=== PATIENT | female | born 1970 | race Caucasian/White ===

== ENCOUNTER 2022-07-21 05:27 | Outpatient (CLI) | payer BC, OTHER ==
[~2022-07-21] VITALS: Ht 162.5 cm; Wt 91.8 kg
[2022-07-21] MEDS ORDERED: PHEN-483 PO (08:54)
[2022-07-21] MEDS ORDERED: DICLOFENAC GEL (08:54)
[2022-07-21] MEDS ORDERED: TOPI25TA10 PO (08:54)
[2022-07-21] MEDS ORDERED: LOSA100T57 PO (08:54)
[2022-07-21] MEDS ORDERED: DICL25TA12 PO (08:54)
[2022-07-21] MEDS ORDERED: DICL50TA4 PO (08:54)
== END 2022-07-21 09:04 ==
LOC: PREOP 05:27
PROVIDERS: ATTEND Podiatrist Foot & Ankle Surgery
DX: Z01.818 Encounter for other preprocedural examination (principal); M20.12 Hallux valgus (acquired), left foot

== ENCOUNTER 2022-07-28 05:55 | Day surgery (SDC) | payer BC, OTHER ==
[~2022-07-28] VITALS: Ht 162.5 cm; Wt 91.8 kg
[2022-07-28] VITALS (11 sets, daily range): BP systolic 98–143; BP diastolic 63–89
[~2022-07-28 05:55] MED LIST: DICL25TA12 PO; DICL50TA4 PO; DICLOFENAC GEL; LOSA100T57 PO; PHEN-483 PO; TOPI25TA10 PO
[2022-07-28] MEDS ORDERED: ceFAZolin INJECTION 1,000 MG in NS (IVPB) 50 ML IV ONE (06:30)
[2022-07-28] MEDS: LACTATED RINGERS 1,000 ML IV PRN ×2 (07:01→08:20)
[2022-07-28] MEDS ORDERED: fentaNYL INJ 100 MCG/2 ML AMP ONE ×2 (07:03→09:27)
[2022-07-28] MEDS ORDERED: LIDOCAINE PF 2% 5 ML (XYLOCAINE) VIAL ONE (07:03)
[2022-07-28] MEDS ORDERED: ONDANSETRON 4 MG/2 ML (SDV) Z0FRAN ONE (07:03)
[2022-07-28] MEDS ORDERED: MIDAZOLAM 2 MG/2 ML (VERSED) VIAL ONE (07:03)
[2022-07-28] MEDS ORDERED: proPOfol 200 MG/20 ML (DIPRIVAN) VIAL IV ONE (07:03)
[2022-07-28] MEDS ORDERED: LIDOCAINE 1% INJ 20 ML VIAL ONE (07:06)
[2022-07-28] MEDS ORDERED: BUPIVACAINE 0.25% 30 ML (SENSORCAINE) VIAL ONE (07:06)
--- NOTE | 2022-07-28 07:19 | Progress Note-Pre Operative ---
Pre-Operative Progress Note Date of Available H&P: Jul 28, 2022 Date H&P Reviewed: Jul 28, 2022 Time H&P Reviewed: 07:18 Pre-Operative Diagnosis: Hallux Valgus left LACHO MATTHEWS DPLiliane Jul 28, 2022 07:19
[2022-07-28] MEDS ORDERED: BUPIVACAINE 0.25% 30 ML (SENSORCAINE) VIAL INJ ONE (07:50)
[2022-07-28] MEDS ORDERED: LIDOCAINE 1% INJ 20 ML VIAL INJ ONE (07:51)
[2022-07-28] MEDS ORDERED: SEVOFLURANE (ULTANE) 15 ML INHAL SOLN ONE (08:25)
--- NOTE | 2022-07-28 08:47 | Progress Note-Post Operative ---
Post-Operative Progess Note Surgeon (s)/Jointer Machine (s) Surgeon LACHO MATTHEWS DPM Jointer Machine: none Pre-Operative Diagnosis Hallux Valgus left Post-Operative Diagnosis same Procedure & Operative Findings Date of Procedure 07/28/22 Procedure Performed/Findings Santiago-Hesham bunionectomy left Anesthesia Type General Estimated Blood Loss Estimated blood loss (mL): Minimal Specimens/Packing Specimens Removed None LACHO MATTHEWS DPM Jul 28, 2022 08:47
[2022-07-28] MEDS ORDERED: CLIN150C2 PO (08:51)
[2022-07-28] MEDS ORDERED: [UNRECOGNIZED DRUG - CODE] PO (08:51)
[2022-07-28] MEDS ORDERED: LACTATED RINGERS 1,000 ML IV SCH (09:00)
[2022-07-28] MEDS ORDERED: morphine INJ 4 MG/ML 1 ML (VIAL/SYRINGE) IVP PRN (09:00)
[2022-07-28] MEDS ORDERED: ONDANSETRON 4 MG/2 ML (SDV) Z0FRAN IVP PRN (09:00)
[2022-07-28] MEDS ORDERED: morphine INJ 10 MG/ML 1ML (SYR OR VIAL) IVP ONE (09:00)
[2022-07-28] MEDS ORDERED: fentaNYL INJ 100 MCG/2 ML AMP IVP ONE (09:30)
--- NOTE | 2022-07-28 09:35 | Diagnostic Imaging Report ---
EXAMINATION: Left foot radiographs, 2 views. COMPARISON: None. HISTORY: 52-year-old female, status post foot surgery. FINDINGS: There are osteotomy changes of the first proximal phalanx with metallic fixation wire at the site of the osteotomy. There are also osteotomy findings of the first metatarsal with fixation pin traversing the osteotomy. There is uncovering of the lateral sesamoid. There is moderate joint space loss of the first metatarsophalangeal joint with osteophyte formation. There is soft tissue gas in the region of postoperative changes likely reflecting recent postoperative state of the patient. There is a multipart normal variant os navicularis. There is mild degenerative type calcaneal enthesopathy. There is no identified acute fracture. There is no cortical or aggressive bone destruction. IMPRESSION: 1. Postoperative changes of the first digit as above without identified complication. 2. Moderate osteoarthritis of the first metatarsophalangeal joint. Dictated by: Dictated on workstation # [id number]
--- NOTE | 2022-07-28 11:41 | Anesthesia-General Post-Op ---
General Patient Condition Mental Status/LOC: Same as Preop Cardiovascular: Satisfactory Nausea/Vomiting: Absent Respiratory: Satisfactory Pain: Controlled Complications: Absent Post Op Complications Complications None Follow Up Care/Instructions Patient Instructions None needed. Anesthesia/Patient Condition Patient Condition Patient is doing well, no complaints, stable vital signs, no apparent adverse anesthesia problems. No complications reported per nursing. XIN GEORGE CRNA Jul 28, 2022 11:41
--- NOTE | 2022-07-28 13:30 | OPERATIVE REPORT ---
DATE OF SERVICE: 07/28/2022 SURGEON: Meenu Dawkins DPM. PREOPERATIVE DIAGNOSIS: Hallux abductovalgus with metatarsal primus varus, left foot. POSTOPERATIVE DIAGNOSIS: Hallux abductovalgus with metatarsal primus varus, left foot. PROCEDURE: Modified Santiago-Hesham bunionectomy, left foot. WOUND CLASS: Clean. ANESTHESIA: General. HEMOSTASIS: Pneumatic thigh tourniquet at 250 mmHg. INDICATIONS: This 52-year-old female presents complaining of painful left bunion. Conservative therapy has met with unsatisfactory results and the patient is agreeable to surgical intervention after risks and complications were discussed at length. No guarantees were extended to the patient and she is willing to proceed. DESCRIPTION OF PROCEDURE: The patient was brought back to the operating table and placed in a secure supine position. General anesthetic was induced. Appropriate timeout was performed. Pneumatic thigh tourniquet was placed on the left lower extremity over several layers padding. The left foot was then prepped and draped in normal sterile manner. The left foot was then anesthetized utilizing 10 mL of 1:1 mixture of 1% Xylocaine and 0.5% Marcaine injected in a Sin block. The left foot was elevated and allowed to exsanguinate after which the tourniquet was inflated to 250 mmHg. Attention was then directed to the dorsal aspect of the left first metatarsophalangeal joint where a 6 cm longitudinal linear incision was created. The incision was deepened in the same plane with great care to identify and retract all vital neurovascular structures. All the necessary blood vessels were cauterized as encountered. The incision was deepened down to the capsular tissue where a longitudinal capsulotomy was performed. The capsular tissue was reflected medial and laterally and the medial eminence to the first metatarsal was resected with a power sagittal saw as well as the dorsal eminence of the first metatarsal head. There was a dorsal, medial and lateral spurring to the base of the proximal phalanx as well. This was reduced utilizing a rongeur. A lateral release was performed. The conjoined tendon of the adductor hallucis was identified and released. Lateral capsulorrhaphy was performed. The fibular sesamoidal ligament was also released. Attention was redirected to the medial aspect of the first metatarsal where a Chevron type osteotomy was performed. Great care was taken to preserve the sesamoidal apparatus. The capital fragment was translocated laterally and fixated in its correct position utilizing a threaded 0.062 K-wire driven from dorsal proximal to plantar distal with great care not to penetrate the articular cartilage. The K-wire was cut flush with the dorsal aspect of the first metatarsal. The head of the first metatarsal was further contoured and smoothed with a power sagittal saw and power bur. Attention was then directed to the diaphysis of the proximal phalanx of the hallux where a subperiosteal dissection was carried out. Utilizing power sagittal saw, a wedge of bone was cut with the base, medial and the lateral cortices held intact. Once the wedge of bone was resected, the gap was closed, correcting the alignment of the hallux. Utilizing a wire passing drill, two pilot teacher holes were created at the dorsal medial aspect of the osteotomy. A 28-gauge monofilament wire was then passed through the pilot teacher hole securing the osteotomy in a closed position. Excellent bony apposition and fixation was appreciated at this time. The wounds were flushed with copious amounts of normal saline throughout the procedure. Closure was then performed in layers. Deep closure was performed with 3-0 Vicryl, superficial with 4-0 Vicryl, skin closure with 4-0 Prolene in a horizontal mattress type stitch. The patient tolerated the anesthesia and procedure well and was transported from the operating room to the recovery room with vital signs stable and vascular status intact to all digits of the left foot. She was given a prescription for tramadol as well as clindamycin. She is to follow up in my office in 10 days period of time or sooner if necessary. She is to be nonweightbearing with the left lower extremity with crutches. Job ID: [id number] DocumentID: [id number] Dictated Date: 07/28/2022 08:57:40 Wallpaper Inspector And Shipper Date: 07/28/2022 13:28:00 Dictated By: CHARLES WILL
== END 2022-07-28 11:02 | disposition home or self-care (01) ==
LOC: SDC 05:55
PROVIDERS: ATTEND Podiatrist Foot & Ankle Surgery
DX: Q66.212 Congenital metatarsus primus varus, left foot (principal); E66.9 Obesity, unspecified; Z68.34 Body mass index [BMI] 34.0-34.9, adult
CPT/HCPCS: 73620; 87081